=== PATIENT | female | born 1990 | race Caucasian/White ===

== ENCOUNTER 2020-02-01 23:19 | Outpatient (CLI) | payer BC ==
[~2020-02-01] VITALS: Ht 170.2 cm; Wt 87.7 kg
[~2020-02-01 23:19] MED LIST: PRENATAL1 TA3 PO
[2020-02-01 23:25] VITALS: BP 115/67; PULSE 77; TEMP 97.8
--- NOTE | 2020-02-01 23:25 | NUR ---
2325 G4L3 38.2 WEEK GEST TO LR4 WITH C/O POSS ROM EARLIER TONIGHT. STATES FELT A TRICKLE WHILE OUT WALKING AND WENT HOME AND LAID DOWN FOR AWHILE AND DIDN'T FEEL ANYTHING ELSE BUT JUST WANTED IT CHECKED OUT. STATES FEELING MILD CONTRACTIONS BUT NOT REGULAR AND HAS BEEN HAVING FRANCO GUO ALL WEEK. EFM ON. SVE WITH NEG AMNIOTRACE /-2. ADM ASSESSMENT DONE.
[2020-02-01] MEDS ORDERED: PREVACID 30MG30 M1 PO (23:31)
[2020-02-01 23:33] VITALS: BP 115/67; PULSE 77; TEMP 97.8
--- NOTE | 2020-02-01 23:50 | NUR ---
2350 ROLES HERE AND REPORT GIVEN. ORDER TO DISMISS TO HOME NOW. 0010 HOME WITH INSTRUCTIONS.
[2020-02-06] MEDS ORDERED: PROAIR HFA0.09 MG/AC IH (06:19)
== END 2020-02-02 00:10 | disposition home or self-care (01) ==
LOC: LDRO 23:19
DX: O42.92 Full-term premature rupture of membranes, unspecified as to length of time between rupture and onset of labor (principal); Z3A.38 38 weeks gestation of pregnancy

== ENCOUNTER 2020-02-06 06:49 | Inpatient (IN) | payer BC ==
[2020-02-06] VITALS (24 sets, daily range): BP systolic 110–141; BP diastolic 58–82; PULSE 59–743; TEMP 97.4–98.4
[~2020-02-06] VITALS: Ht 170.2 cm; Wt 87.7 kg
[~2020-02-06 06:49] MED LIST changes: +PREVACID 30MG30 M1 PO; +PROAIR HFA0.09 MG/AC IH
--- NOTE | 2020-02-06 06:55 | NUR ---
Pt arrives on unit ambulatory with spouse for IOL. Changed into clean gown. EFM and toco applied. Denies vaginal bleeding, regular ctx, LOF, and reports GFM. Admission assessment completed. Consents signed. Pt updated on POC. Safety reviewed. Bed locked in low position. Call light within reach. No questions or concerns at this time.
[2020-02-06 08:24] LABS: BASO % 0.3 % (0.0-2.0); EOS % 0.3 % (0-4.0); GRAN # 6.9 (1.4-6.5); GRAN % 79.4 % (42.2-75.2); HEMATOCRIT 39.1 % (37.0-47.0); HEMOGLOBIN 13.4 g/dl (12.5-16.0); LYMPH # 1.1 (1.2-3.4); LYMPH % 12.7 % (20.0-51.0); MEAN CELL VOLUME 91 fl (80.0-100.0); MEAN CORPUSCULAR HEMOGLOBIN 31 pg (27.0-31.0); MEAN CORPUSCULAR HGB CONC 34 g/dl (33.0-37.0); MEAN PLATELET VOLUME 12.8 fl (7.4-10.4); MONO # 0.6 (0.1-0.6); PLATELET COUNT 97 K/mm3 (130-400); RED BLOOD COUNT 4.32 M/mm3 (4.10-5.30)
--- NOTE | 2020-02-06 09:24 | NUR ---
Pt sitting upright for epidural placement. Difficulty tracing FHR due to maternal position. RN at bedside adjusting monitors. FHR audible.
--- NOTE | 2020-02-06 10:40 | NUR ---
Dr. Olivares at bedside for delivery. Pt begins pushing with provider. 1045- of viable male attended by Dr. Olivares. dried and placed on mother's abdomen. Delayed cord clamping performed. Cord clamped x 2 and cut from umbilicus. Care of infant to Tracie Arevalo RN. 1051- of placenta. Fundus firm at umbilicus. Bleeding WNL. Pitocin infusing per protocol. Second degree laceration repair per provider. Pericare performed. Ice pack applied. Pt updated on POC. Safety reviewed. Bed locked in low position. Call light within reach. No questions or concerns at this time.
[2020-02-07 02:00] VITALS: BP 113/61; PULSE 73; TEMP 98.1
[2020-02-07 08:15] VITALS: BP 114/61; PULSE 84; TEMP 97.8
[2020-02-07] MEDS ORDERED: MOTRIN 800800 MG/TAB PO (08:41)
[2020-02-07] MEDS ORDERED: PERCOCET 325 MG1 TA2 PO (08:42)
[2020-02-07 11:15] VITALS: BP 116/63; PULSE 64; TEMP 98.6
== END 2020-02-07 13:30 | disposition home or self-care (01) | DRG 806 ==
LOC: LDR 06:49 → OB 12:39
PROVIDERS: ADMIT Student in an Organized Health Care Education/Training Program
PROC: 10E0XZZ Delivery of Products of Conception, External Approach (ICD-10-PCS; principal; 2020-02-06)
PROC: 0UQMXZZ Repair Vulva, External Approach (ICD-10-PCS; 2020-02-06)
PROC: 10907ZC Drainage of Amniotic Fluid, Therapeutic from Products of Conception, Via Natural or Artificial Opening (ICD-10-PCS; 2020-02-06)
PROC: 3E033VJ Introduction of Other Hormone into Peripheral Vein, Percutaneous Approach (ICD-10-PCS; 2020-02-06)
DX: O99.344 Other mental disorders complicating childbirth (principal); O99.12 Other diseases of the blood and blood-forming organs and certain disorders involving the immune mechanism complicating childbirth; Z37.0 Single live birth; F41.9 Anxiety disorder, unspecified; O99.62 Diseases of the digestive system complicating childbirth; D69.6 Thrombocytopenia, unspecified; O70.0 First degree perineal laceration during delivery; Z3A.39 39 weeks gestation of pregnancy
CPT/HCPCS: J2590; J7120

== ENCOUNTER 2021-09-22 12:35 | Emergency (ER) | payer OTHER ==
[~2021-09-22] VITALS: Ht 170.2 cm; Wt 75.0 kg
[~2021-09-22 12:35] MED LIST changes: +MOTRIN 800800 MG/TAB PO; +PERCOCET 325 MG1 TA2 PO
[2021-09-22 12:53] VITALS: TEMP 98.4
[2021-09-22 13:33] LABS: BASO % 0.4 % (0.0-2.0); EOS # 0.1 K/mm3 (0.0-0.7); EOS % 1.2 % (0.0-4.0); GRAN % 66.9 % (42.2-75.2); HEMATOCRIT 38.8 % (37.0-47.0); HEMOGLOBIN 12.9 g/dl (12.5-16.0); LYMPH # 1.9 K/mm3 (1.2-3.4); LYMPH % 24.9 % (20.0-51.0); MEAN CELL VOLUME 90 fl (80.0-100.0); MEAN CORPUSCULAR HEMOGLOBIN 30 pg (27-31); MEAN CORPUSCULAR HGB CONC 33 g/dl (33.0-37.0); MONO # 0.5 K/mm3 (0.1-0.6); MONO % 6.5 % (1.7-9.3); PLATELET COUNT 182 K/mm3 (130-400); RED BLOOD COUNT 4.33 M/mm3 (4.10-5.30); REDCELL DISTRIBUTION WIDTH-CV 12.6 % (11.5-14.5)
[2021-09-22 13:49] LABS: ALANINE AMINOTRANSFERASE 12 U/L (0-55); ALKALINE PHOSPHATASE 60 U/L (40-150); ANION GAP 7 mmol/L (7-16); AST,SGOT 17 U/L (5-34); BILIRUBIN,TOTAL 0.7 mg/dL (0.2-1.2); BLOOD UREA NITROGEN 10 mg/dL (7-19); CALCIUM 9.1 mg/dL (8.4-10.2); CARBON DIOXIDE 25 mmol/L (22-29); CHLORIDE 107 mmol/L (98-107); CREATININE, serum 0.78 mg/dL (0.57-1.11); GLUCOSE 103 mg/dL (70-99); POTASSIUM 3.7 mmol/L (3.5-4.5); SODIUM 139 mmol/L (136-145); TOTAL PROTEIN 6.7 gm/dL (6.2-8.1)
[2021-09-22 13:55] LABS: TROPONIN-I < 0.010 ng/mL (0.00-0.033)
[2021-09-22 14:28] VITALS: BP 108/65; PULSE 64
== END 2021-09-22 14:40 | disposition home or self-care (01) ==
LOC: COL.ER 12:35
PROVIDERS: Emergency Medicine
DX: R07.89 Other chest pain (principal); Z86.16 Personal history of COVID-19